=== PATIENT | female | born 1985 | race African-American/Black ===

== ENCOUNTER 2017-03-03 09:16 | Emergency (ER) | payer SELFPAY ==
[~2017-03-03] VITALS: Ht 167.6 cm; Wt 67.4 kg
--- NOTE | 2017-03-03 09:25 | NUR ---
PATIENT BIB [facility] FROM BUS STOP, FOUND COMBATIVE, "SPITTING ON PEOPLE." PATIENT IS CURRENTLY SEDATED, VERSED 5MG IM GIVEN ON ROUTE. PATIENT IS A/OX 1, BREATHING EVEN AND UNLABORED. NO SOB. VITALS STABLE. SAFETY AND COMFORT MEASURES IN PLACE. AWAITING MD ORDERS.
[2017-03-03] MEDS ORDERED: IV NS 0.9% 1,000 ML BAG IV ONE (09:30)
--- NOTE | 2017-03-03 09:40 | NUR ---
NEW IV STARTED ON R HAND, 20 G.
[2017-03-03] MEDS ORDERED: diphenhydrAMINE HCL 50 MG/ML VIAL ONE (10:05)
[2017-03-03] MEDS ORDERED: HALOPERIDOL LACTATE INJ 5 MG/ML VIAL ONE (10:06)
--- NOTE | 2017-03-03 10:10 | NUR ---
PATIENT VERY AGITATED, YELLING, SCREAMING, CURSING. MD AT BEDSIDE, MEDICATIONS ORDERED AND GIVEN.
[2017-03-03] MEDS ORDERED: diphenhydrAMINE HCL 50 MG/ML VIAL IV ONE (10:30)
[2017-03-03] MEDS ORDERED: HALOPERIDOL LACTATE INJ 5 MG/ML VIAL IV ONE (10:30)
--- NOTE | 2017-03-03 10:48 | NUR ---
JOINT FILLER AT BEDSIDE FOR BLOOD DRAW.
[2017-03-03 10:53] LABS: BASOPHILS % (AUTO) 0.3 % (0.0-2.0); EOSINOPHILS # (AUTO) 0.1 /CMM (0.0-0.7); HEMATOCRIT 42 % (33-45); HEMOGLOBIN 13.8 g/dL (11.5-14.8); MEAN CORPUSCULAR HEMOGLOBIN 30 PG (26.0-33.0); MEAN CORPUSCULAR HGB CONC 33 g/dl (31.0-36.0); MEAN CORPUSCULAR VOLUME 90 fL (82-100); MONOCYTES # (AUTO) 0.7 /CMM (0.1-1.30); NEUTROPHILS % (AUTO) 79.7 % (43.0-81.0); PLATELET COUNT (AUTO) 296 /CMM (150-450); RDW COEFFICIENT OF VARIATION 14.6 (11.5-15.0); RED BLOOD CELL COUNT(AUTO) 4.65 MIL/uL (4.0-5.2); WHITE BLOOD COUNT (AUTO) 8.8 K/uL (4.3-11.0)
[2017-03-03 11:03] LABS: CALCIUM, SERUM 8.9 mg/dL (8.5-10.1); CARBON DIOXIDE 23 mmol/L (21-32); CHLORIDE 100 mmol/L (98-107); CREATININE 1.3 mg/dL (0.6-1.3); GLUCOSE 71 mg/dL (74-106); POTASSIUM 3.2 mmol/L (3.5-5.1); SODIUM SERUM 137 mmol/L (136-145); UREA NITROGEN, BLOOD 23 mg/dL (7-18)
[2017-03-03 11:08] LABS: ALANINE AMINOTRANSFERASE 50 U/L (12-78); ALCOHOL, BLOOD < 3 mg/dL (0-0); ALKALINE PHOSPHATASE 69 U/L (46-116); ASPARTATE AMINOTRANSFERASE 87 U/L (15-37); BILIRUBIN,DIRECT 0.3 mg/dL (0.0-0.2); SALICYLATE 5.4 mg/dL (2.8-20.0); TOTAL PROTEIN, SERUM 7.6 g/dL (6.4-8.2)
[2017-03-03 11:09] LABS: ACETAMINOPHEN 0 ug/ml (10-30)
[2017-03-03] MEDS ORDERED: IV D5/ 0.9% NACL 1,000 ML IV ONE (11:30)
[2017-03-03 13:32] LABS: APPEARANCE,URINE SL CLOUDY (CLEAR); BILIRUBIN,URINE NEGATIVE (NEGATIVE); BLOOD, URINE TRACE-INTA Ery/uL (NEGATIVE); COLOR,URINE YELLOW (YELLOW); KETONES,URINE 3+ (NEGATIVE); LEUKOCYTE ESTERASE ,URINE NEGATIVE (NEGATIVE); NITRITE, URINE POSITIVE (NEGATIVE); PH,URINE 5.5 (5.0-8.0); PROTEIN,URINE TRACE mg/dl (NEGATIVE); UGLUCOSE NEGATIVE (NEGATIVE); UROBILINOGEN,URINE 0.2 EU/dL (0.2)
[2017-03-03 13:41] LABS: BACTERIA,URINE Moderate /HPF (None Seen); RBC,URINE 0-2 /HPF (0-2); SQUAMOUS EPITHELIAL CELL,UR Few /HPF (None Seen)
--- NOTE | 2017-03-03 16:14 | NUR ---
PATIENT REFUSING TO PROVIDE ANY INFORMATION TO MD. PATIENT IS ALERT, AMBULATORY WITH STABLE GAIT. DENIES SI/HI. PATIENT STATING SHE WANTS TO GET OUT OF HERE. PER DR. WALDROP, OKAY TO DISCHARGE. IV REMOVED FROM RIGHT HAND. DISCHARGE INSTRUCTION PROVIDE, PATIENT REFUSED TO SIGN. PATIENT DISCHARGED HOME.
[2017-03-03 16:16] VITALS: BP 145/78
== END 2017-03-03 16:16 | disposition home or self-care (01) ==
LOC: ER 09:20
DX: F23 Brief psychotic disorder (principal); R82.99 Other abnormal findings in urine; F10.129 Alcohol abuse with intoxication, unspecified
CPT/HCPCS: 36415; 80048; 80076; 80305; 80329; 81001; 84703; 85025; 87086; 96361; 96374; 96375; 99284; A4606; G0480 ×2; J1200; J1630; J7030; J7042; Z7610; 81000-TC